=== PATIENT | male | born 1995 | race Two or more races ===

== ENCOUNTER 2021-03-28 21:38 | Emergency (ER) | payer OTHER ==
--- NOTE | 2021-03-28 22:28 | EDM.PDOC ---
ED HPI GENERAL MEDICAL PROBLEM - General Chief Complaint: General Stated Complaint: HERNIA Time Seen by Provider: 03/28/21 22:04 Source of Information: Reports: Patient History Limitations: Reports: No Limitations - History of Present Illness INITIAL COMMENTS - FREE TEXT/NARRATIVE: Patient is a 25-year-old male who is complaining of having right groin pain that started approximately a year ago has been worse for the past couple days. Patient feels a mass in the area which he is able to reduce on his own feels this is happening more frequently. When the pain is present he feels it radiates to the testicle and also to his abdomen. Patient has noted some dysuria today but denies any hematuria. He attempted follow-up with a surgeon when he was in [facility] but was unable to make an appointment there. He is hoping that we will be able to expedite him being seen by a surgeon. He denies any fever chills or nausea vomiting or diarrhea. 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 ED EXAM, GENERAL - Physical Exam Exam: See Below Exam Limited By: No Limitations General Appearance: Alert, No Apparent Distress Head: Normocephalic Neck: Supple, Full Range of Motion Respiratory/Chest: No Respiratory Distress GI/Abdominal: Normal Bowel Sounds, Soft, Non-Tender, No Distention, No Mass (Male) Exam: No Hernia, Normal Inspection. No: Inguinal Lymphadenopathy, Scrotal Swelling, Scrotum Tenderness (R), Suprapubic Fullness, Testicular Tenderness (R) Back Exam: Normal Inspection. No: CVA Tenderness (L), CVA Tenderness (R) Extremities: Normal Inspection Neurological: Alert, Oriented Psychiatric: Normal Affect, Normal Mood Skin Exam: Warm, Dry Lymphatic: No Adenopathy Course - Vital Signs Text/Narrative:: Urine is positive for ketone and +1 blood and possible protein. No sign of urinary tract infection. I am discharging him at this point and will make an attempt to get him a PCP and hopefully a surgical consultation in the near future. Patient is aware he needs to return to ER if his hernia becomes trapped and he cannot push it in himself. Last Recorded V/S: Last Vital Signs Temp 97.9 F 03/28/21 22:01 Pulse 62 03/28/21 22:01 Resp 20 03/28/21 22:01 BP 138/72 03/28/21 22:01 Pulse Ox 99 03/28/21 22:01 - Orders/Labs/Meds Labs: Laboratory Tests 03/28/21 Range/Units 23:11 Urine Color Yellow (Yellow) Urine Appearance Clear (Clear) Urine pH 7.0 (5.0-8.0) Ur Specific Social Circle 1.020 (1.005-1.030) Urine Protein 1+ H (Negative) Urine Glucose (UA) Negative (Negative) Urine Ketones 1+ H (Negative) Urine Occult Blood 1+ H (Negative) Urine Nitrite Negative (Negative) Urine Bilirubin Negative (Negative) Urine Urobilinogen 1.0 (0.2-1.0) Ur Leukocyte Esterase Negative (Negative) Departure - Departure Time of Disposition: 23:25 Disposition: Home, Self-Care 01 Condition: Good Clinical Impression: Inguinal hernia - Discharge Information Instructions: Inguinal Hernia, Adult, [id number] Referrals: PCP,None [Primary Care Provider] - Forms: ED Department Discharge Additional Instructions: Follow-up with a general surgeon soon as possible. Reduce hernia every time it is present for unable to do so immediately return to the emergency department. And nonreducible hernia can become gangrenous and can become life-threatening so do not ignore this if you are having symptoms. Sepsis Event Note (ED) - Evaluation Sepsis Screening Result: No Definite Risk - Focused Exam Vital Signs: Vital Signs Temp Pulse Resp BP Pulse Ox 03/28/21 22:01 97.9 F 62 20 138/72 99
== END 2021-03-28 23:41 | disposition home or self-care (01) ==
LOC: JD.ED 21:38
DX: K40.90 Unilateral inguinal hernia, without obstruction or gangrene, not specified as recurrent (principal); Z88.0 Allergy status to penicillin; Z86.16 Personal history of COVID-19
CPT/HCPCS: 81003; 99283